=== PATIENT | male | born 1980 ===

== ENCOUNTER 2019-08-05 12:31 | Emergency (ER) | payer OTHER ==
[2019-08-05 12:50] VITALS: BP 117/72
--- NOTE | 2019-08-05 12:53 | UC ---
FLU HPI - HPI Summary HPI Summary: 39 yo male presents with flu-like symptoms. He tells me that for the last 2 days he has had fatigue, body aches, and nausea. He was sick with similar symptoms 3-4 days ago, but she improved within 24 hours. Pt has not. He has been taking ibuprofen OTC with no change in his symptoms. He is most concerned because he has a 9month old infant at home - they are well, but pt is concerned about passing illness/the flu to child. Denies rash, SOB, abdominal pain, vomiting, diarrhea - History of Current Complaint Chief Complaint: UCGeneralIllness Stated Complaint: FLU SYMPTOMS Time Seen by Provider: 08/05/19 12:52 Hx Obtained From: Patient Onset/Duration: Sudden Onset Severity Currently: Moderate Severity Initially: Moderate Pain Intensity: 6 Pain Scale Used: 0-10 Numeric - Allergy/Home Medications Allergies/Adverse Reactions: Allergies Allergy/AdvReac Type Severity Reaction Status Date / Time No Known Allergies Allergy Verified 08/05/19 12:48 Home Medications: Home Medications Ibuprofen 400 mg PO ONCE PRN 08/05/19 [History Confirmed 08/05/19] PMH/Surg Hx/FS Hx/Imm Hx - Additional Past Medical History Additional PMH: None - Surgical History Surgical History: Yes Surgery Procedure, Year, and Place: LEFT KNEE AREA- [place] REMOVED - age 9. PT HAD A HEAD TRAUMA AGE 3, IN A COMA BUT NO SURGERY NEEDED - Family History Known Family History: Positive: Hypertension - Social History Occupation: Employed Full-time Lives: With Family Alcohol Use: Rare Substance Use Type: None Smoking Status (MU): Never Smoked Tobacco Review of Systems All Other Systems Reviewed And Are Negative: No Constitutional: Positive: Fever, Fatigue, Other - Body aches Skin: Positive: Negative Eyes: Positive: Negative ENT: Positive: Negative Respiratory: Positive: Cough Cardiovascular: Positive: Negative Gastrointestinal: Positive: Nausea Genitourinary: Positive: Negative Neurological: Positive: Negative Psychological: Positive: Negative Physical Exam - Summary Physical Exam Summary: GENERAL: NAD. WDWN. No pain distress. SKIN: No rashes, sores, lesions, or open wounds. HEENT: Head: AT/NC Eyes: EOM intact. Conjunctiva clear without inflammation or discharge. Ears: Hearing grossly normal. TMs intact, no bulging, erythema, or edema. Nose: Nasal mucosa pink and moist. NTTP maxillary and frontal sinus. Throat: Posterior oropharynx without exudates, erythema, or tonsillar enlargement. Uvula midline. NECK: Supple. Nontender. No lymphadenopathy. CHEST: CTAB. No r/r/w. No accessory muscle use. Breathing comfortably and in no distress. CV: RRR. Pulses intact. Cap refill <2seconds NEURO: Alert. PSYCH: Age appropriate behavior. Triage Information Reviewed: Yes Vital Signs: Initial Vital Signs Temp 98.4 F 08/05/19 12:44 Pulse 69 08/05/19 12:44 Resp 18 08/05/19 12:44 BP 117/72 08/05/19 12:44 Pulse Ox 99 08/05/19 12:44 Laboratory Tests 08/05/19 13:02 Influenza A (Rapid) Negative Influenza B (Rapid) Negative Vital Signs Reviewed: Yes Flu Course/Dx - Course Course Of Treatment: POC flu negative. Suspect viral illness - advised to continue OTC supportive care and be rechecked if symptoms do not improve - Differential Dx/Diagnosis Provider Diagnosis: Viral syndrome Discharge ED - Sign-Out/Discharge Documenting (check all that apply): Patient Departure All imaging exams completed and their final reports reviewed: No Studies - Discharge Plan Condition: Stable Disposition: HOME Patient Education Materials: Viral Syndrome (ED) Referrals: Jean-Paul Josue MD [Primary Care Provider] - Additional Instructions: FLU TEST WAS NEGATIVE TODAY Your symptoms are likely from a viral infection. Viral infections do not respond to antibiotics and are limited to the treatment of symptoms. Viral infections typically run their course in 7-10 days. Drink plenty of fluids, especially if you are running any fever. Use salt water gargles several times a day. Take over the counter acetaminophen (Tylenol) or ibuprofen (Advil, Motrin) according to directions as needed for pain or fever. You may also use Chloraseptic spray or Cepacol lonzenges according to directions which contain a numbing medication and can provide some temporary relief from a sore throat. Return here or follow up with your primary care provider in 7 days if symptoms persist. - Billing Disposition and Condition Condition: STABLE Disposition: Home
[2019-08-05 13:14] LABS: Influenza A Molecular NEGATIVE (Negative); Influenza B Molecular NEGATIVE (Negative)
== END 2019-08-05 13:19 | disposition home or self-care (01) ==
LOC: UCEAST 12:31
DX: B34.9 Viral infection, unspecified (principal); R53.83 Other fatigue; R11.0 Nausea; R05 Cough; R52 Pain, unspecified
CPT/HCPCS: 99211; G0463